=== PATIENT | male | born 1990 | race Caucasian/White ===

== ENCOUNTER → 2020-05-20 14:29 | Outpatient (CLI) | payer OTHER, SELFPAY ==
--- NOTE | 2020-05-20 | DI.US.S_ITS ---
PROCEDURE: US SCROTUM INDICATIONS: Disorder of male genital organs, unspecified TECHNIQUE: Real-time scanning was performed of the scrotum and testicles, with image documentation. Color and pulse Doppler interrogation was performed of both testicles. COMPARISON: None. FINDINGS: Right: Testicle is normal in size at 4.9 x 2.6 x 3.4 cm, and homogenous in echotexture. Epididymis is normal in overall size and morphology. No hydrocele or varicoceles. Overlying scrotal skin is normal in thickness. Left: Testicle is normal in size at 4.9 x 2.5 x 3.4 cm, and homogeneous in echotexture. Epididymis is normal in overall size and morphology. No hydrocele or varicoceles. Overlying scrotal skin is normal in thickness. Doppler: Color and pulse Doppler demonstrate normal and symmetric arterial flow in both testicles. IMPRESSION: 1. Unremarkable exam. 2. No mass identified at the area palpable concern. 3. No visualized torsion at time of exam. Intermittent torsion cannot be excluded. Dictated by: Kirsten Hess M.D. on 05/20/2020 at 16:29 Approved by: Kirsten Hess M.D. on 05/20/2020 at 16:29
== END ==
PROVIDERS: PCP Family Medicine; Referring Provider Family Medicine; Visit Provider Family Medicine
DX: N50.9 Disorder of male genital organs, unspecified (principal)
CPT/HCPCS: 76870